=== PATIENT | female | born 1980 | race Caucasian/White ===

== ENCOUNTER 2017-10-16 17:36 | Emergency (ER) | payer OTHER ==
[2017-10-16 18:45] VITALS: BP 107/74
--- NOTE | 2017-10-16 19:02 | ED ---
Upper Extremity Pain - HPI Summary HPI Summary: 37 yr old with pain, swelling, tingling in right arm. Onset yesterday morning when woke up. Denies CP, SOB. No trauma or injury. She says her right hand fingers are like sausages and swollen today, and veins in forearm are distended. She is a smoker. - History of Current Complaint Chief Complaint: UCUpperExtremity Stated Complaint: R ARM ISSUE Time Seen by Provider: 10/16/17 18:51 Hx Last Menstrual Period: 10/01/17 - Allergies/Home Medications Allergies/Adverse Reactions: Allergies Allergy/AdvReac Type Severity Reaction Status Date / Time SUNSHINE Allergy Severe HIVES , Uncoded 10/16/17 18:35 SKIN ERRUPTIONS Home Medications: Home Medications Ibuprofen TAB* [Motrin TAB* 800 MG] 800 mg PO Q6H PRN 10/16/17 [History Confirmed 10/16/17] PMH/Surg Hx/FS Hx/Imm Hx - Cancer History Cancer Type, Location and Year: cervical - Surgical History Surgery Procedure, Year, and Place: essure. EYE SURGERY AND EYE RECONSTRUCTION Infectious Disease History: No Infectious Disease History: Denies: Traveled Outside the [place] in Last 30 Days - Family History Known Family History: Positive: None - Social History Lives: With Family Alcohol Use: None Substance Use Type: Reports: None Smoking Status (MU): Heavy Every Day Tobacco Smoker Type: Cigarettes Amount Used/How Often: 1 pack daily Have You Smoked in the Last Year: Yes Review of Systems Constitutional: Negative Negative: Chest Pain Negative: Shortness Of Breath Positive: Edema - right arm with swelling and pain. All Other Systems Reviewed And Are Negative: Yes Physical Exam Triage Information Reviewed: Yes Vital Signs On Initial Exam: Initial Vitals Temp Pulse Resp BP Pulse Ox 99.2 F 71 18 107/74 100 10/16/17 18:37 10/16/17 18:37 10/16/17 18:37 10/16/17 18:37 10/16/17 18:37 Vital Signs Reviewed: Yes Appearance: Positive: Well-Appearing, No Pain Distress Skin: Positive: Warm, Skin Color Reflects Adequate Perfusion Head/Face: Positive: Normal Head/Face Inspection Eyes: Positive: EOMI ENT: Positive: TMs normal Neck: Positive: Nontender Respiratory/Lung Sounds: Positive: Clear to Auscultation, Breath Sounds Present Cardiovascular: Positive: RRR. Negative: Murmur Abdomen Description: Positive: Nontender Musculoskeletal: Positive: Strength/ROM Intact, Edema Right - upper extremity with fingers, forearm and arm a little swollen and prominent veins right arm compared to left arm. She has good radial pulse right arm. Neurological: Positive: Sensory/Motor Intact - no focal weakness., Alert, Oriented to Person Place, Time, CN Intact II-III, Normal Gait, Speech Normal Diagnostics - Vital Signs Vital Signs Temp Pulse Resp BP Pulse Ox 10/16/17 18:37 99.2 F 71 18 107/74 100 - Laboratory Lab Statement: Any lab studies that have been ordered have been reviewed, and results considered in the medical decision making process. Course/Dx - Course Course Of Treatment: 37 yr old with swelling to right arm, prominent veins and pain. She will go to the ER for further eval, and US of extremity to eval for DVT. She was offered Ambulance, but states her will drive her. - Diagnoses Provider Diagnoses: Edema, Arm pain Discharge - Sign-Out/Discharge Documenting (check all that apply): Discharge/Admit/Transfer - Discharge Plan Condition: Good Disposition: TRANS HIGHER LVL OF CARE FAC Patient Education Materials: Edema (ED) Referrals: No Primary Care Phys,NOPCP [Primary Care Provider] - Additional Instructions: You need to go to the ER immediately upon leaving here to be sure you do not have a blood clot in your right arm. Do not delay going to the ER. - Billing Disposition and Condition Condition: GOOD Disposition: EMTALA
== END 2017-10-16 18:58 | disposition short-term general hospital (02) ==
LOC: UCCORT 17:36
DX: R60.9 Edema, unspecified (principal); M79.601 Pain in right arm; F17.210 Nicotine dependence, cigarettes, uncomplicated; Z91.09 Other allergy status, other than to drugs and biological substances
CPT/HCPCS: 99212; G0463